=== PATIENT | female | born 2000 | race Caucasian/White ===

== ENCOUNTER 2020-07-12 09:37 | Emergency (ER) | payer BC ==
--- NOTE | 2020-07-12 09:51 | TELE ---
HPI - General Reason For Visit: eye swelling Time Seen by Provider: 07/12/20 09:48 History Source: Patient Exam Limitations: Clinical Condition - History of Present Illness Timing/Duration: 24 hours Associated Symptoms: denies: diaphoresis, fever/chills, shortness of breath 07/12/20 09:48 Patient with no significant past medical history presented to [facility] urgent care with complaint of swelling and pain to left upper eyelid since yesterday. Patient reports swelling started as mild to left upper eyelid and is worsening this morning. Denies blurry vision, change in vision, headache, dizziness, nausea or vomiting. Patient uses contact lens but report has not been using contact lens since yesterday. Denies any other symptoms Past History - Medical History Allergies/Adverse Reactions: Allergies Allergy/AdvReac Type Severity Reaction Status Date / Time egg Allergy Verified 10/30/13 11:43 tree nut Allergy Verified 10/30/13 11:43 Home Medications: Ambulatory Orders No Home Medications 0 dose .ROUTE UTDICT 10/30/13 Erythromycin 0.5% Eye Ointment [Erythromycin 0.5% Eye Ointment -] 1 applic OS TID 5 Days #1 tube 07/12/20 Thyroid Disease: No - Surgical History Abdominal Surgery: Yes (umbilical hernia repair) - Psycho-Social/Smoking History Smoking History: Never smoked Have you smoked in the past 12 months: No Cigars Per Day: 0 Review of Systems - Review of Systems Able to Perform ROS?: Yes Limited Romansh proficient: No Constitutional: No: Chills, Fever, Malaise HEENTM: Yes: Symptoms Reported, See HPI, Eye Pain (left upper eyelid swelling). No: Blurred Vision, Tearing, Recent change in vision, Double Vision, Cataracts, Ear Pain, Ocular Prothesis, Ear Discharge, Nose Pain, Nose Congestion, Tinnitus, Nose Bleeding, Hearing Loss, Throat Pain, Throat Swelling, Mouth Pain, Dental Problems, Difficulty Swallowing, Mouth Swelling, Other Respiratory: No: Symptoms reported, See HPI, Cough, Orthopnea, Shortness of Breath, SOB with Exertion, SOB at Rest, Stridor, Wheezing, Productive cough, Hemoptysis, Other Cardiac (ROS): No: Symptoms Reported, See HPI, Chest Pain, Edema, Irregular Heart Rate, Lightheadedness, Palpitations, Syncope, Chest Tightness, Other ABD/GI: No: Symptoms Reported, Nausea, Vomiting Musculoskeletal: No: Symptoms Reported Integumentary: Yes: Symptoms Reported, See HPI, Erythema (left upper eyelid ) Neurological: No: Headache, Dizziness All Other Systems: Reviewed and Negative *Physical Exam - Physical Exam General Appearance: Yes: Nourished, Appropriately Dressed. No: Apparent Distr ess HEENT: positive: EOMI, Normal ENT Inspection, Normal Voice, Other (mild swelling to left upper eyelid with mild erythema) Respiratory/Chest: negative: Respiratory Distress, Accessory Muscle Use Musculoskeletal: positive: Normal Inspection Extremity: positive: Normal Inspection Integumentary: positive: Normal Color Neurologic: positive: Fully Oriented, Alert, Normal Mood/Affect, Normal Response, Motor Strength 01/29 - Medical Decision Making 07/12/20 09:49 Patient with no significant past medical history presented to [facility] urgent care with complaint of swelling and pain to left upper eyelid since yesterday. Patient reports swelling started as mild to left upper eyelid and is worsening this morning. Denies blurry vision, change in vision, headache, dizziness, nausea or vomiting. Patient uses contact lens but report has not been using contact lens since yesterday. Denies any other symptoms Exam significant for mild swelling to left upper eyelid with mild localized erythema to midportion of left upper eyelid. Extraocular muscle intact. No swelling to rest of eyelids. Patient symptoms likely blepharitis of left upper eyelid. Patient stable for discharge on topical erythromycin antibiotics ointment with advised to do warm compresses with ophthalmology follow-up Discharge Diagnosis at time of Disposition: Blepharitis of left eye Qualifiers: Blepharitis type: unspecified type Eyelid: upper Qualified Code(s): H01.004 - Unspecified blepharitis left upper eyelid - Prescriptions eRx: Erythromycin 0.5% Eye Ointment [Erythromycin 0.5% Eye Ointment -] 1 applic OS TID 5 Days #1 tube - Referrals - Patient Instructions Discharge Instructions: DI for Blepharitis - Discharge Disposition: HOME Condition at time of Disposition: Stable
== END 2020-07-12 09:53 | disposition home or self-care (01) ==
LOC: JVIRT 09:37
DX: H01.004 Unspecified blepharitis left upper eyelid (principal)
CPT/HCPCS: Q3014-GT

== ENCOUNTER 2020-08-19 17:34 | Emergency (ER) | payer BC | END 2020-08-19 17:57 | disposition home or self-care (01) | LOC: JVIRT 17:34 | DX: J06.9 Acute upper respiratory infection, unspecified (principal) | CPT/HCPCS: Q3014-GT ==